=== PATIENT | female | born 1990 | race Caucasian/White ===

== ENCOUNTER 2024-05-02 15:14 | Outpatient (CLI) | payer OTHER, SELFPAY ==
[2024-05-02 15:51] LABS: Basophils Percent Auto 0.1 % (0.2-1.2); Eosinophils Absolute Auto 0.1 K/mm3 (0-0.3); Eosinophils Percent Auto 0.7 % (0-4.4); Hematocrit 33.6 % (37.0-47.0); Hemoglobin 11.1 g/dL (12.0-15.0); Immature Granulocyte Absolute 0.07 K/mm3 (0.00-0.031); Immature Granulocyte Percent A 0.8 % (0-0.5); Lymphocytes Percent Auto 15.6 % (18.3-44.2); Mean Corpuscular Hemoglobin 27.3 pg (26-34); Mean Corpuscular Volume 82.6 fl (80-100); Mean Platelet Volume 9.9 fl (7.4-10.4); Monocytes Absolute Auto 0.4 K/mm3 (0.1-0.6); Monocytes Percent Auto 4.3 % (2.6-8.5); Neutrophils Absolute Auto 6.5 K/mm3 (1.3-6.7); Neutrophils Percent Auto 78.5 % (45.5-73.1); Platelet Count Result 351 k/mm3 (150-375); Red Blood Count 4.07 M/mm3 (4.2-5.4); Red Cell Distribution Width 13.5 % (11.5-14.5); White Blood Count 8.3 K/mm3 (4.5-10.0)
[2024-05-02 16:00] LABS: Alanine Aminotransferase 18 U/L (6-35); Albumin Level 3.6 g/dL (3.5-5.1); Alkaline Phosphatase 92 U/L (38-126); Anion Gap 8 mmol/L (4-12); Aspartate Amino Transferase 27 U/L (14-36); Bilirubin,Total 0.2 mg/dL (0.2-1.3); Blood Urea Nitrogen 7 mg/dL (7-17); Carbon Dioxide 21 mmol/L (22-30); Chloride 106 mmol/L (98-107); Estimated Glomerular Filt Rate > 60; Glucose 143 mg/dL (65-110); Sodium 135 mmol/L (137-145); Uric Acid 5.1 mg/dL (2.5-7.5)
[2024-05-02 16:01] VITALS: BP 135/82; PULSE 82
[2024-05-02 16:01] LABS: Add Urine Microscopic? YES; Appearance Urine Turbid (Clear); Bacteria Urine 4+ /hpf; Bilirubin Urine 1+ (Negative); Blood Urine Negative (Negative); Color Urine Dark Yellow (Yellow); Glucose Urine UA Negative (Negative); Ketones Urine Trace mg/dL (Negative); Leukocyte Esterase Ur Trace LEU/UL (Negative); Need Manual Microscopic Reviewed; Nitrate Urine Negative (Negative); Non Pathogenic Casts >20; Protein Urine 1+ mg/dL (Negative); Specific Grav Ur 1.034 (1.001-1.035); Squamous Epithelial Cell Urine Moderate /hpf (Few); pH Urine 5.5 (5.0-9.0)
[2024-05-02 16:16] VITALS: BP 145/90; PULSE 87
[2024-05-02 16:31] VITALS: BP 146/87; PULSE 90
[2024-05-02 16:46] VITALS: BP 149/90; PULSE 88
[2024-05-02 16:47] LABS: Creatinine Urine 503.7 mg/dL; Total Protein Urine Random < 5 mg/dL; Ur Ttl Prot Creatinine Ratio < 0.01 mg/mg (0-0.20)
[2024-05-02 16:54] VITALS: BP 135/82; PULSE 88
== END 2024-05-02 17:00 | disposition home or self-care (01) ==
LOC: ANHOBOP 15:22 → ANHOBPP 15:24
PROVIDERS: PCP Nurse Practitioner Family; Visit Provider Obstetrics & Gynecology
DX: O13.9 Gestational [pregnancy-induced] hypertension without significant proteinuria, unspecified trimester (principal); Z3A.00 Weeks of gestation of pregnancy not specified
CPT/HCPCS: 36415; 59025; 80053; 81001; 82570; 84156; 84550; 85025; 87086; 99199

== ENCOUNTER 2024-05-04 15:41 | Inpatient (IN) | payer OTHER, SELFPAY ==
[2024-05-04] VITALS (15 sets, daily range): BP systolic 107–151; BP diastolic 72–98; PULSE 82–101; TEMP 36.2–36.6; BMI 44.1
--- NOTE | 2024-05-04 15:41 | LDADM ---
This patient, Radha Mcconnell, was admitted to Labor/Delivery/Recovery 108 on 05/04/24 at 15:41. Plans for labor, pain management and were discussed with patient. Patient/family oriented to hospital policies and general routines including ID bracelet, bed and alarms, visiting hours, pain management, procedures, bathroom and other care routines, personal items, smoking policy, room service/diet and guest tray routines, security routines, and visiting hours. Patient/Family are encouraged to report perceived risks to care and to ask questions if they do not understand what they are told or what they should do. See OBIX for further documentation.
[2024-05-04 16:59] LABS: Basophils Percent Auto 0.3 % (0.2-1.2); Eosinophils Absolute Auto 0.1 K/mm3 (0-0.3); Eosinophils Percent Auto 0.7 % (0-4.4); Hematocrit 32.6 % (37.0-47.0); Hemoglobin 10.6 g/dL (12.0-15.0); Immature Granulocyte Absolute 0.08 K/mm3 (0.00-0.031); Immature Granulocyte Percent A 0.8 % (0-0.5); Lymphocytes Absolute Auto 1.39 K/mm3 (0.9-3.2); Lymphocytes Percent Auto 14.5 % (18.3-44.2); Mean Corpuscular HGB Conc 32.5 g/dl (32-36); Mean Corpuscular Hemoglobin 26.8 pg (26-34); Mean Corpuscular Volume 82.5 fl (80-100); Mean Platelet Volume 10.1 fl (7.4-10.4); Monocytes Absolute Auto 0.5 K/mm3 (0.1-0.6); Monocytes Percent Auto 5.1 % (2.6-8.5); Neutrophils Absolute Auto 7.5 K/mm3 (1.3-6.7); Neutrophils Percent Auto 78.6 % (45.5-73.1); Platelet Count Result 365 k/mm3 (150-375); Red Blood Count 3.95 M/mm3 (4.2-5.4); Red Cell Distribution Width 13.3 % (11.5-14.5); White Blood Count 9.6 K/mm3 (4.5-10.0)
[2024-05-04] MEDS: DINOPROSTONE 10 MG VAG INSERT VAGINAL (17:01)
[2024-05-04 17:10] LABS: Uric Acid 4.8 mg/dL (2.5-7.5)
[2024-05-04 17:11] LABS: Alanine Aminotransferase 18 U/L (6-35); Albumin Level 3.6 g/dL (3.5-5.1); Alkaline Phosphatase 92 U/L (38-126); Anion Gap 7 mmol/L (4-12); Aspartate Amino Transferase 32 U/L (14-36); Bilirubin,Total 0.3 mg/dL (0.2-1.3); Blood Urea Nitrogen 7 mg/dL (7-17); Calcium 8.9 mg/dL (8.4-10.2); Carbon Dioxide 22 mmol/L (22-30); Chloride 107 mmol/L (98-107); Estimated CRCL calculation 156 ml/min; Estimated Glomerular Filt Rate > 60; Glucose 113 mg/dL (65-110); Potassium 3.9 mmol/L (3.4-5.0); Sodium 136 mmol/L (137-145)
[2024-05-04 17:38] LABS: Rapid Plasma Reagin Non-Reactive (NonReactive)
[2024-05-04 18:17] LABS: HIV 1/2 Ab P24 Ag Result Negative (Negative)
--- NOTE | 2024-05-04 20:22 | P.HP_ITS ---
H&P: HPI History of Present Illness Date/Time: 05/04/24 20:22 Chief Complaint: Induction of labor Narrative: 33 y/o G1 at 37 5/7 weeks here for induction of labor. She has chronic hypertension and has been taking Procardia XL 30 mg daily and labetalol 200 mg bid. She has no headache, epigastric/RUQ pain, or visual change. Labs have been OK, and we do not suspect preeclampsia. But bp control has worsened, so we have opted to go ahead with labor induction. GBS neg. Review of Systems Review of Systems: All systems reviewed & are unremarkable except as noted in HPI and below PMFSH Past Medical History Medical History Anxiety Hypertension PCOS (polycystic ovarian syndrome) Family History Family History Mother Hypertension Grandparent Hypertension Heart disease Social History Social History Social History: 04/25/24 very confident with medical forms Smoking packs per day: 1 Smoking cigarettes per day: 20.0 Years smoked: 17 Smoking pack-years: 17.00 Smoking status: Former smoker Alcohol intake: current Alcohol use details: beer Substance use: never Do You Feel Safe in your Home?: Yes Lack of Transportation: No Lack of Food: Never True Current Housing: I Have Housing Concerned About Future Housing: No Difficulty Paying Gas/Electric Bills: No Difficulty Paying for Meds: No Currently Unemployed: No Education: High School Diploma/GED Difficulty w/ Childcare or Family Care: No Living arrangements: with roommate(s) Occupation/Education: occupation 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 Spiritual care concerns: No Agree to blood products: Yes Meds Home Medications and Allergies Home Medications Medication Instructions Recorded Confirmed Type vitamins no.119-iron 1 tablet PO DAILY 07/28/21 05/01/24 History fumarate 29 mg-folic acid 1 mg tablet valacyclovir 1 gram tablet 2,000 mg PO Q12H PRN cold sores 01/24/24 05/01/24 Rx #30 tabs nifedipine 30 mg tablet,extended 30 mg PO DAILY #90 tabs 01/25/24 05/01/24 Rx release citalopram 10 mg tablet 10 mg PO DAILY #90 tabs 03/20/24 05/01/24 Rx labetalol 200 mg tablet 200 mg PO Q12H #180 tabs 05/01/24 05/04/24 Rx Allergies Allergy/AdvReac Type Severity Reaction Status Date / Time No Known Allergies Allergy Verified 05/01/24 10:00 Vital Signs Vital Signs - 24 hr 05/04/24 16:16 05/04/24 17:24 05/04/24 17:31 Temperature Pulse Rate 91 84 82 Blood Pressure 133/81 148/98 H 147/93 H Oxygen Delivery 05/04/24 18:00 05/04/24 17:23 05/04/24 18:31 Temperature 36.2 C L Pulse Rate 89 88 Blood Pressure 129/72 107/79 Oxygen Delivery 05/04/24 19:01 05/04/24 19:31 05/04/24 20:01 Temperature Pulse Rate 82 101 H 91 Blood Pressure 121/87 131/92 H 137/87 Oxygen Delivery 05/04/24 17:15 Temperature Pulse Rate Blood Pressure Oxygen Delivery Room Air Exam Const: Orientation/consciousness: patient oriented x3 Other: Well-developed, well-nourished female in no acute distress. Neck: Thyroid: thyroid normal Lymphatic: no lymphadenopathy noted (in neck, axilla or inguinal nodes) Resp: Effort & Inspection: normal respiratory effort Auscultation: clear to auscultation bilaterally Cardio: Rate: regular rate Rhythm: regular rhythm Heart sounds: S1 normal heart sound present and S2 normal heart sound present GI: Other: ABD: Soft, nontender, nondistended, gravid. NST reactive. TOCO: rare contractions. No guarding or rebound tenderness. No hepatosplenomegaly. : General: Yes no CVA tenderness Other: Cervix 1/th per RN Back/Spine/Pelvis: Back: no CVA tenderness Skin: General skin exam: normal color and no rashes or lesions noted Neuro: General: patient oriented x3 Extrem: Other: Extremities: nontender with no edema Psych: Mental Status: mental status grossly normal Affect: normal affect H&P: Results Labs Labs: Short CBC 05/04/24 Range/Units 16:23 WBC 9.6 (4.5-10.0) K/mm3 Hgb 10.6 L (12.0-15.0) g/dL Hct 32.6 L (37.0-47.0) % Plt Count 365 (150-375) k/mm3 BMP 05/04/24 16:23 Sodium 136 L Potassium 3.9 Chloride 107 Carbon Dioxide 22 BUN 7 Creatinine 0.60 L Glucose 113 H Calcium 8.9 Liver Function 05/04/24 Range/Units 16:23 Total Bilirubin 0.3 (0.2-1.3) mg/dL AST 32 (14-36) U/L ALT 18 (6-35) U/L Alkaline Phosphatase 92 (38-126) U/L Albumin 3.6 (3.5-5.1) g/dL Assessment and Plan Assessment and plan (1) Term : Code(s): Z34.90 - Encounter for supervision of normal , unspecified, unspecified trimester Status: Acute Assessment and Plan: A: IUP at 37 5/7 weeks with CHTN, worsening bp control on 2 antihypertensives. P: Offered induction of labor. We reviewed risks, benefits and alternatives in detail, and she elects to proceed. Cervidil has been placed. Plan oxytocin in the morning. Anticipate . (2) Chronic hypertension affecting : Code(s): O10.919 - Unspecified pre-existing hypertension complicating , unspecified trimester Status: Acute (3) Anxiety: Code(s): F41.9 - Anxiety disorder, unspecified Status: Acute (4) Obesity affecting : Code(s): O99.210 - Obesity complicating , unspecified trimester Status: Acute
[2024-05-05] VITALS (263 sets, daily range): BP systolic 103–165; BP diastolic 55–120; PULSE 71–173; TEMP 36.5–37.3; O2SAT 81–100
[2024-05-05] MEDS: LACTATED RINGERS 1,000 ML 125 ML IV CONT ×4 (06:10→21:30)
[2024-05-05] MEDS: OXYTOCIN 30 UNITS/NS 500 ML 30 UNITS/500 ML BAG 6 UNITS IV CONT (06:10)
--- NOTE | 2024-05-05 06:19 | P.PNAN_ITS ---
Anes - Eval Pre Procedure Procedure: Labor epidural Date/Time: 05/05/24 06:19 Surgeon: mandy Preop Diagnosis: pain during labor Pre Op Diagnosis: Induction of Labor Patient Data Age: 33 Gender: F Height: 1.7 m Weight: 128 kg Last Vital Signs Temp 36.5 C 05/05/24 04:00 Pulse 82 05/05/24 06:01 BP 156/90 H 05/05/24 06:01 O2 Del Method Room Air 05/04/24 17:15 Allergies Allergy/AdvReac Type Severity Reaction Status Date / Time No Known Allergies Allergy Verified 05/01/24 10:00 Home Medications Medication Instructions Recorded Confirmed Type vitamins no.119-iron 1 tablet PO DAILY 07/28/21 05/01/24 History fumarate 29 mg-folic acid 1 mg tablet valacyclovir 1 gram tablet 2,000 mg PO Q12H PRN cold sores 01/24/24 05/01/24 Rx #30 tabs nifedipine 30 mg tablet,extended 30 mg PO DAILY #90 tabs 01/25/24 05/01/24 Rx release citalopram 10 mg tablet 10 mg PO DAILY #90 tabs 03/20/24 05/01/24 Rx labetalol 200 mg tablet 200 mg PO Q12H #180 tabs 05/01/24 05/04/24 Rx Laboratory Tests 05/04/24 16:23 WBC 9.6 K/mm3 (4.5-10.0) RBC 3.95 L M/mm3 (4.2-5.4) Hgb 10.6 L g/dL (12.0-15.0) Hct 32.6 L % (37.0-47.0) MCV 82.5 fl (80-100) MCH 26.8 pg (26-34) MCHC 32.5 g/dl (32-36) RDW 13.3 % (11.5-14.5) Plt Count 365 k/mm3 (150-375) MPV 10.1 fl (7.4-10.4) Immature Gran % (Auto) 0.8 H % (0-0.5) Neut % (Auto) 78.6 H % (45.5-73.1) Lymph % (Auto) 14.5 L % (18.3-44.2) [place] % (Auto) 5.1 % (2.6-8.5) Eos % (Auto) 0.7 % (0-4.4) Baso % (Auto) 0.3 % (0.2-1.2) Lymph # (Auto) 1.39 K/mm3 (0.9-3.2) [place] # (Auto) 0.5 K/mm3 (0.1-0.6) Eos # (Auto) 0.1 K/mm3 (0-0.3) Baso # (Auto) 0.0 K/mm3 (0.0-0.1) Abs Immat Gran (auto) 0.08 H K/mm3 (0.00-0.031) Absolute Neuts (auto) 7.5 H K/mm3 (1.3-6.7) Absolute Nucleated RBC 0.000 K/mm3 (0.0-0.012) Nucleated RBC % 0.0 % (0.0-0.2) Sodium 136 L mmol/L (137-145) Potassium 3.9 mmol/L (3.4-5.0) Chloride 107 mmol/L (98-107) Carbon Dioxide 22 mmol/L (22-30) Anion Gap 7 mmol/L (4-12) BUN 7 mg/dL (7-17) Creatinine 0.60 L mg/dL (0.7-1.0) Estim Creat Clear Calc 156 ml/min Estimated GFR > 60 (59 - ) Glucose 113 H mg/dL (65-110) Uric Acid 4.8 mg/dL (2.5-7.5) Calcium 8.9 mg/dL (8.4-10.2) Total Bilirubin 0.3 mg/dL (0.2-1.3) AST 32 U/L (14-36) ALT 18 U/L (6-35) Alkaline Phosphatase 92 U/L (38-126) Total Protein 7.0 g/dL (6.3-8.2) Albumin 3.6 g/dL (3.5-5.1) RPR Non-reactive (NonReactive) HIV 1&2 Ab/P24 Ag 4thGn Negative (Negative) Blood Type AB Positive Antibody Screen Negative Patient hx anesthesia problems: none Family hx anesthesia problems: none Results Review: All pre-operative results and documents have been reviewed as part of the pre- operative evaluation. PMFSH Past Medical History Medical History (Updated 05/05/24 @ 06:20 by Patsy Long CRNA) Anxiety Hypertension Morbid obesity PCOS (polycystic ovarian syndrome) Family History Family History Mother Hypertension Grandparent Hypertension Heart disease Social History Social History Social History: 04/25/24 very confident with medical forms Smoking packs per day: 1 Smoking cigarettes per day: 20.0 Years smoked: 17 Smoking pack-years: 17.00 Smoking status: Former smoker Alcohol intake: current Alcohol use details: beer Substance use: never Do You Feel Safe in your Home?: Yes Lack of Transportation: No Lack of Food: Never True Current Housing: I Have Housing Concerned About Future Housing: No Difficulty Paying Gas/Electric Bills: No Difficulty Paying for Meds: No Currently Unemployed: No Education: High School Diploma/GED Difficulty w/ Childcare or Family Care: No Living arrangements: with roommate(s) Occupation/Education: occupation 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
--- NOTE | 2024-05-05 08:55 | PM.OBPNLAB ---
Pain Control Date/time seen: 05/05/24 08:55 Feeling some contractions. AVSS NST reactive TOCO: irregular contractions Cervix 250/-2. AROM with clear fluid. IUPC placed. Continue labor.
[2024-05-05] MEDS: NIFEdipine 30 MG TAB.ER.24 PO (09:02)
[2024-05-05] MEDS: LABETALOL HCL 100 MG TABLET 200 MG PO ×2 (09:02→21:53)
--- NOTE | 2024-05-05 11:51 | PM.OBPNLAB ---
Pain Control Date/time seen: 05/05/24 11:51 Comfortable with epidural. AVSS NST reactive TOCO: contractions every 2-3 min Cervix /-2 Continue labor.
--- NOTE | 2024-05-05 16:39 | PM.OBPNLAB ---
Pain Control Date/time seen: 05/05/24 16:39 Comfortable with epidural. AVSS NST reactive TOCO: contractions every 2-3 min Cervix 3-/-2. Continue labor. I have signed out to Dr. Sanchez, who is on duty for the weekend. The patient is aware as well.
[2024-05-05 17:11] LABS: Amphetamine Screen Urine Negative (Negative); Barbiturate Screen Urine Negative (Negative); Benzodiazepines Screen Urine Negative (Negative); Cannabinoid Screen Urine Negative (Negative); Cocaine Screen Urine Negative (Negative); Methadone Screen Urine Negative (Negative); Opiate Screen Urine Negative (Negative); Phencyclidine Screen Urine Negative (Negative)
--- NOTE | 2024-05-05 21:44 | PC.NURSE ---
[id number] spoke to Laura PETERS regarding FHT tracing. RN notified MD of FHT with moderate variability and accelerations. RN also notified MD of uterine activity. RN notified MD of tachysystole, so pitocin was turned off and a fluid bolus was started. RN notified MD that when RN palpated abdomen, it doesn't get very soft in between contractions and that RN had Shasta Lewis RN confirm by palpating. Contractions palpating moderate. RN also notified MD of IUPC falling out and a new one was placed and Leslie Mckee RN got blood flashback in catheter when placing IUPC. RN also notified MD of current uterine resting tone. MD gave orders to give terb if needed. MD gave order to start pitocin again when allowed per tracing.
[2024-05-06] VITALS (352 sets, daily range): BP systolic 89–167; BP diastolic 53–123; PULSE 76–154; RESP 14–22; TEMP 36.4–37.3; O2SAT 88–100
[2024-05-06] MEDS: AMPICILLIN 2 GM/NS 100 ML 2 GM/100 ML BAG IVPB (02:50)
[2024-05-06] MEDS: OXYTOCIN 30 UNITS/NS 500 ML 30 UNITS/500 ML BAG 6 UNITS IV CONT (04:18)
[2024-05-06] MEDS: AMPICILLIN 1 GM/NS 50 ML 1 GM/50 ML BAG IVPB ×4 (07:26→18:35)
[2024-05-06] MEDS: NIFEdipine 30 MG TAB.ER.24 PO (09:46)
[2024-05-06] MEDS: LACTATED RINGERS 1,000 ML 125 ML IV CONT ×2 (10:23→19:14)
--- NOTE | 2024-05-06 10:58 | PM.OBPNLAB ---
Pain Control Date/time seen: 05/06/24 10:58 Pain control: epidural Pelvic Exam Dilation (cm): 4 Effacement (%): 80 Amniotic membrane status: Ruptured Contractions Contraction pattern: Regular Contraction intensity: Moderate Status status: Category l Comments: Occassional decels that resolve with position change or decreasing pitocin. Assessment and Plan Assessment: induction ongoing (Prolonged latent phase. Discussed with patient. ) Plan: continuous present management
[2024-05-06] MEDS: LABETALOL HCL 100 MG TABLET 200 MG PO (12:44)
[2024-05-06] MEDS: valACYclovir HCL 500 MG TABLET PO (14:18)
[2024-05-06] MEDS: CALCIUM CARBONATE (TUMS) 500 MG (200 MG ELEMENTAL) PO (16:40)
[2024-05-06] MEDS: OXYTOCIN 30 UNITS/NS 500 ML 30 UNITS/500 ML BAG IV CONT (16:44)
--- NOTE | 2024-05-06 18:24 | PM.OBPNLAB ---
Pain Control Date/time seen: 05/06/24 18:24 Pain control: epidural Comments: RN reports contractions not adequate and as increasing Pitocin, miki is less. Offered patient csection for failed induction vs pitocin break and restarting with new bag of pitocin. Patient prefers to take a break. Pelvic Exam Dilation (cm): 4 (4.5) Effacement (%): 80 Amniotic membrane status: Ruptured Contractions Contraction pattern: Regular Contraction intensity: Moderate Status status: Category l
[2024-05-06] MEDS: ACETAMINOPHEN 500 MG TABLET 1000 MG PO (21:04)
[2024-05-06] MEDS: FAMOTIDINE 20 MG/2 ML VIAL IV PUSH (21:05)
[2024-05-06] MEDS: ceFAZolin 3 GM/D5W 100 ML 100 ML IVPB (21:06)
[2024-05-06] MEDS: AZITHROMYCIN 500 MG/NS 250 ML 500 MG/250 ML BAG 250 MG IVPB (21:06)
[2024-05-06] MEDS: ONDANSETRON INJ 4 MG/2 ML VIAL IV PUSH (21:06)
--- NOTE | 2024-05-06 21:14 | PM.OBPNLAB ---
Pain Control Date/time seen: 05/06/24 21:14 Pain control: epidural Comments: No change. Decided to proceed with csection. Questions answered. Had to wait for anesthesia case in OR to move forward. FHTs remain category I Pelvic Exam Dilation (cm): 4 (4.5) Effacement (%): 80 Amniotic membrane status: Ruptured Contractions Contraction pattern: Regular Contraction intensity: Moderate Status status: Category l
--- NOTE | 2024-05-06 21:16 | WPDHPUPDATE1 ---
History and Physical Update Update Date/Time: 05/06/24 21:16 History and Physical has been reviewed, including an updated exam of the patient. There are NO changes in the patient's condition. Risks, benefits, and alternatives have been discussed and questions answered. Patient agrees to proceed with procedure.
--- NOTE | 2024-05-06 22:02 | W.PM.OBCSD ---
OB - Delivery Note Procedure Delivery date: 05/06/24 Pre-op diagnosis: Arrest of Dilation and Chronic Hypertension Post-op Diagnosis: Same Induction method: AROM, Per Pitocin Protocol and Per Cervidil Protocol Delivery monitor: Internal FHT and Internal Uterine Prior to decision for section, ACOG/SMFM labor guidelines were considered and discussed with the patient and staff. Decision made to proceed with the section.: Yes Procedure Performed: Primary Primary branch: low cervical, transverse Surgeon: Lesa Sanchez MD Anesthesia type: Epidural Description of Procedure/Findings: Patient was taken to the operating room and placed under anesthesia in the dorsal supine position with a leftward tilt. Once anesthesia was deemed adequate she was prepped and draped in the usual sterile fashion. The Pfannenstiel skin incision was made with a scalpel and carried down to the underlying layer of fascia with the scalpel. The incision was extended laterally using De La Paz scissors. [facility] were used to tent the fascia which was then dissected off using sharp and blunt dissection. The rectus muscles were in the midline and the peritoneum entered with a Peon high in the incision. The incision was extended with blunt traction. The Deshawn O retractor was placed. The infant was noted to be deep in the pelvis. The bladder flap was distal to the incision line therefore was not taken down. A transverse incision was made with a scalpel and extended with blunt traction. The infant's head was brought up into the incision and noted to be in the left occiput posterior position. The 's head was rotated and guided through the incision while the laboratory chemical assistant applied fundal pressure. Nuchal cord x1 was reduced. Delayed cord clamping for 1minute was performed while stimulating the infant. The cord was clamped and cut the infant handed to the waiting nursery nurse. The placenta was removed using manual traction. Uterus was cleared of all clots and debris. The incision is grasped with Allis clamps. The uterine incision was closed using 0 Monocryl in a running locked fashion. Same suture was used to imbricate. Good hemostasis is noted. The gutters are irrigated. The incision was again inspected and noted to be hemostatic. The Deshawn O retractor was removed. The fascia was closed using 0 Vicryl in a running fashion. The subcutaneous tissues were irrigated made hemostatic using Bovie cautery. Skin is closed using 4-0 Vicryl in a subcuticular fashion. The Dermabond is placed over the incision and the Mepilex dressing is placed. Sponge, needle, and instrument counts are correct per the OR staff. Patient received antibiotics prior to incision. Patient was taken to recovery in stable condition. Specimen: Yes ( Placenta) Estimated Blood Loss: 555 Urine Output: 900 Drains: Yes ( El catheter) Packing: No Complications: No immediate complications Condition: Stable Disposition: Floor Baby Date of : 05/06/24 Gestational Age by Date: 37 gender: Male Weight (pounds): 6 Weight (ounces): 15 presentation: vertex position: Left Occiput Posterior Placenta delivery description: Spontaneous Cord Vessel Description: 3 Vessels, Nuchal Cord and Delayed Cord Clamping score one minute: 6 score five minutes: 9
--- NOTE | 2024-05-06 22:07 | PM.OBDSVD ---
DS: Admitting Diagnosis Discharge Date 05/10/24 Admitting Diagnosis chronic hypertension with worsening blood pressures 37 weeks failure to progress DS: Discharge Diagnosis Discharge Diagnosis (1) Delivery of first by section using transverse incision of lower segment of uterus: Code(s): O82 - Encounter for delivery without indication Status: Acute (2) Chronic hypertension affecting : Code(s): O10.919 - Unspecified pre-existing hypertension complicating , unspecified trimester Status: Acute OB - DS: Summary OB Procedures : NST, PIH Mgmt and Ultrasound OB Procedures Intrapartum: low cervical, transverse OB Procedures: : None Peripartum Data Infant Delivery Method: Section Procedures: Procedures Operation Date: 05/06/24 20:30 <No data on this case meets the specified criteria> complications: none Status at Discharge Functional status at discharge: independent ambulation Overall status at discharge: patient is progressing back to baseline Time Spent with Patient Time attestation: Total time spent providing and/or coordinating discharge services: Discharge Plan Discharge Attending physician on discharge: Aniceto Boswell Discharging Clinician: Aniceto Boswell Anticipated Discharge Date/Time: 05/09/24 10:09 Patient Disposition: Home, Self-Care Activity: may shower, may drive after 2 weeks and pelvic rest Diet: regular Wound Care Instructions: keep dressing dry Discharge Instructions: Call or return if temperature above 100.4? F, increased abdominal pain, increased vaginal bleeding or any new problems. Stand Alone Forms: General Discharge Information Follow-up/Referrals: Aniceto Boswell MD [Physician] - 4 Weeks Discharge Medications: New ferrous sulfate 325 mg (65 mg iron) tablet 325 mg PO DAILY Qty: 30 0RF ibuprofen 600 mg tablet 600 mg PO Q6H PRN (Reason: cramps) Qty: 30 0RF hydrocodone-acetaminophen 5-325 mg tablet 1 - 2 tablet PO Q6H PRN (Reason: pain) Qty: 30 0RF Continued PNV 119-iron fum-folic acid 29 mg iron- 1 mg tablet 1 tablet PO DAILY labetalol 200 mg tablet 200 mg PO Q12H Qty: 180 0RF valacyclovir 1 gram tablet 2,000 mg PO Q12H PRN (Reason: cold sores) Qty: 30 0RF nifedipine 30 mg tablet extended release 30 mg PO DAILY Qty: 90 1RF citalopram 10 mg tablet 10 mg PO DAILY Qty: 90 0RF Date of admission: 05/04/24 15:41 Primary Care Provider: Sonya Mandujano Admitting Provider: Aniceto Boswell Attending physician on admission: Aniceto Boswell Condition: Stable
[2024-05-07] VITALS (10 sets, daily range): BP systolic 119–147; BP diastolic 67–90; PULSE 76–105; RESP 16–20; TEMP 36.4–36.9; O2SAT 97–100
--- NOTE | 2024-05-07 00:50 | OBPPTRN ---
Patient transferred to post room #282 via stretcher. Support person present. Oriented to unit, room, information board, rooming in, admission packet and security measures. Patient verbalizes understanding.
[2024-05-07] MEDS: LIDOCAINE 5% PATCH 1 PATCH TRANSDERM (03:30)
[2024-05-07] MEDS: ACETAMINOPHEN 325 MG TABLET 650 MG PO ×4 (03:30→22:00)
[2024-05-07] MEDS: DEXTROSE 5%/0.45% SOD CHL 1,000 ML 125 ML IV CONT (03:30)
[2024-05-07] MEDS: KETOROLAC 15 MG/ML VIAL (*BKC) IV PUSH ×4 (03:30→22:00)
[2024-05-07 05:25] LABS: Basophils Absolute Auto 0.1 K/mm3 (0.0-0.1); Basophils Percent Auto 0.3 % (0.2-1.2); Eosinophils Absolute Auto 0.1 K/mm3 (0-0.3); Eosinophils Percent Auto 0.3 % (0-4.4); Hemoglobin 9.9 g/dL (12.0-15.0); Immature Granulocyte Absolute 0.13 K/mm3 (0.00-0.031); Immature Granulocyte Percent A 0.9 % (0-0.5); Lymphocytes Absolute Auto 1.41 K/mm3 (0.9-3.2); Lymphocytes Percent Auto 9.3 % (18.3-44.2); Mean Corpuscular Hemoglobin 27.8 pg (26-34); Mean Corpuscular Volume 84.3 fl (80-100); Mean Platelet Volume 10.2 fl (7.4-10.4); Monocytes Absolute Auto 0.7 K/mm3 (0.1-0.6); Monocytes Percent Auto 4.7 % (2.6-8.5); Neutrophils Absolute Auto 12.8 K/mm3 (1.3-6.7); Neutrophils Percent Auto 84.5 % (45.5-73.1); Platelet Count Result 316 k/mm3 (150-375); Red Blood Count 3.56 M/mm3 (4.2-5.4); Red Cell Distribution Width 13.6 % (11.5-14.5); White Blood Count 15.2 K/mm3 (4.5-10.0)
[2024-05-07] MEDS: diphenhydrAMINE HCl CAP 25 MG CAPSULE PO (05:25)
[2024-05-07] MEDS: SIMETHICONE 80 MG TAB.CHEW PO ×2 (09:23→16:09)
[2024-05-07] MEDS: valACYclovir HCL 500 MG TABLET PO (09:23)
[2024-05-07] MEDS: LABETALOL HCL 100 MG TABLET 200 MG PO ×2 (09:23→22:00)
[2024-05-07] MEDS: DOCUSATE SODIUM 100 MG CAPSULE PO ×2 (09:23→16:09)
[2024-05-07] MEDS: MULTIVIT/MIN/PREN/FOL AC/IRON TABLET 1 TAB PO (09:23)
[2024-05-07] MEDS: CITALOPRAM HYDROBROMIDE 10 MG TABLET PO (09:26)
[2024-05-07] MEDS: POLYSACCHARIDE IRON COMPLEX 150 MG CAPSULE PO ×2 (09:26→16:09)
[2024-05-07] MEDS: NIFEdipine 30 MG TAB.ER.24 PO (09:26)
--- NOTE | 2024-05-07 09:50 | PM.OBPNVD ---
OB - PN: Subj Subjective Date/time seen: 05/07/24 09:50 Patient comments: no complaints and pain well controlled baby status: doing well OB - PN: Obj Data Labs 05/07/24 04:58 05/04/24 16:23 Labs: Laboratory Results - last 24 hr 05/07/24 04:58 WBC 15.2 H RBC 3.56 L Hgb 9.9 L Hct 30.0 L MCV 84.3 MCH 27.8 MCHC 33.0 RDW 13.6 Plt Count 316 MPV 10.2 Immature Gran % (Auto) 0.9 H Neut % (Auto) 84.5 H Lymph % (Auto) 9.3 L [place] % (Auto) 4.7 Eos % (Auto) 0.3 Baso % (Auto) 0.3 Lymph # (Auto) 1.41 [place] # (Auto) 0.7 H Eos # (Auto) 0.1 Baso # (Auto) 0.1 Abs Immat Gran (auto) 0.13 H Absolute Neuts (auto) 12.8 H Absolute Nucleated RBC 0.000 Nucleated RBC % 0.0 OB - PN A/P Plan day: 1 Plan: routine care Time Spent With Patient Time: Total time spent is greater than 50% in coordination of care (as documented) at patient's floor/unit and/or counseling patient: Exam Narrative: bandage c/d/i : Bimanual exam- vagina & uterus: other (Uterus firm, nt @U)
--- NOTE | 2024-05-07 14:03 | WPDANLDPN2 ---
Anes-Prog Note L&D Date/Time: 05/07/24 14:03 Comfortable throughout: labor and section Neuraxial method: epidural Epidural/Spinal procedure site: clean & non-tender Neuro status: Neuro function grossly intact. Cardiovascular status: normal Respiratory status: normal Airway patency: baseline Mental status: baseline Post-Op hydration status: normal Vital Signs: Last Vital Signs Temp 98 F 05/07/24 12:09 Pulse 98 05/07/24 12:09 Resp 20 05/07/24 12:09 BP 124/75 05/07/24 12:09 Pulse Ox 98 05/07/24 12:09 O2 Del Method Room Air 05/07/24 12:09 Pain score (VAS): 1 I/O: Intake & Output 05/06/24 05/07/24 05/07/24 23:59 07:59 15:59 Intake Total 1074.6 500 500 Output Total 1655 650 Balance -580.4 -150 500 Post-procedural complaints: pruritis moderate, treatment effective Patient feedback: Patient satisfied with anesthetic care.
--- NOTE | 2024-05-07 14:03 | WPDANLDNPN2 ---
Anes-Prog Note L&D-Neuraxial Date/Time: 05/07/24 14:03 Neuraxial medications: epidural PF morphine Opiod-related complaints: pruritis moderate, treatment effective Patient feedback: Patient satisfied with post-operative pain management.
[2024-05-08] MEDS: ACETAMINOPHEN 325 MG TABLET 650 MG PO ×3 (04:30→17:06)
[2024-05-08] MEDS: IBUPROFEN 600 MG TABLET PO ×3 (04:30→17:06)
[2024-05-08 08:00] VITALS: PULSE 77
[2024-05-08] MEDS: LABETALOL HCL 100 MG TABLET 200 MG PO ×2 (08:00→21:07)
[2024-05-08] MEDS: NIFEdipine 30 MG TAB.ER.24 PO (08:00)
[2024-05-08] MEDS: DOCUSATE SODIUM 100 MG CAPSULE PO ×2 (08:00→17:06)
[2024-05-08] MEDS: POLYSACCHARIDE IRON COMPLEX 150 MG CAPSULE PO ×2 (08:00→17:06)
[2024-05-08] MEDS: SIMETHICONE 80 MG TAB.CHEW PO ×4 (08:01→21:07)
[2024-05-08] MEDS: CITALOPRAM HYDROBROMIDE 10 MG TABLET PO (08:01)
[2024-05-08] MEDS: valACYclovir HCL 500 MG TABLET PO (08:01)
[2024-05-08] MEDS: MULTIVIT/MIN/PREN/FOL AC/IRON TABLET 1 TAB PO (08:01)
[2024-05-08 08:06] VITALS: BP 146/89; PULSE 77; RESP 16; TEMP 37.1; O2SAT 97
--- NOTE | 2024-05-08 12:11 | PM.OBPNVD ---
OB - PN: Subj Subjective Date/time seen: 05/08/24 12:11 Narrative: Pain OK. Tolerating diet. OB - PN: Obj Data Labs 05/07/24 04:58 05/04/24 16:23 OB - PN A/P Plan day: 2 Comments: A: POD#2, doing well. P: Routine care. Exam Narrative: AVSS I/O OK ABD soft, nontender, fundus firm. Incision c/d/i. EXT nontender
[2024-05-08] MEDS: HYDROcodone/acetaminophen (*CRX) 5-325 MG TABLET 1 TAB PO (15:05)
--- NOTE | 2024-05-08 17:00 | PC.NURSE ---
To patient room to discuss needs. Baby is in level 2 on IV fluids. Mom has been going down at feeding times and putting him to breast as well as supplementing with formula. Patient was given a hand pump to use last night but since baby has been she has not been pumping regularly. Encouraged her to pump any time baby doesn't breastfeed or if he doesn't breastfeed effectively. Mom has her own wearable Lansinoh pump that we reviewed using her prosthodontist/owner's manual. Instructions given on cleaning, care, usage, that there should be no pain, pumping schedule for milk production, collection, and storage of human milk. Patient was assessed for correct placement, flange size, to pump for comfort and nipple stretching/stimulation for adequate milk production every 3 hours (8 times in 24 hours) 1-2 times at night. Discussed with mom her history of PCOS and the risks that poses to milk supply. She has pumped drops and reinforced that this is normal for all moms in the first days after delivery. The only way to know what her milk supply with be like is to pump regularly or put baby to breast often. Discussed need for continued supplementation per Dr. salguero due to condition.?Mother voiced understanding of the education shared along with mom/baby guide and the Admission folder. Reported to the Primary RN.
[2024-05-08 20:00] VITALS: BP 130/70; PULSE 89; RESP 16; TEMP 36.8; O2SAT 100
[2024-05-08 21:07] VITALS: PULSE 89
[2024-05-08] MEDS: LIDOCAINE 5% PATCH 1 PATCH TRANSDERM (21:07)
[2024-05-09] MEDS: ACETAMINOPHEN 325 MG TABLET 650 MG PO ×4 (03:10→22:15)
[2024-05-09] MEDS: IBUPROFEN 600 MG TABLET PO ×4 (03:10→22:15)
[2024-05-09 08:42] VITALS: PULSE 88
[2024-05-09] MEDS: NIFEdipine 30 MG TAB.ER.24 PO (08:42)
[2024-05-09] MEDS: LABETALOL HCL 100 MG TABLET 200 MG PO ×2 (08:42→21:41)
[2024-05-09] MEDS: valACYclovir HCL 500 MG TABLET PO (08:42)
[2024-05-09] MEDS: DOCUSATE SODIUM 100 MG CAPSULE PO ×2 (08:46→16:57)
[2024-05-09] MEDS: MULTIVIT/MIN/PREN/FOL AC/IRON TABLET 1 TAB PO (08:46)
[2024-05-09] MEDS: POLYSACCHARIDE IRON COMPLEX 150 MG CAPSULE PO ×2 (08:46→16:57)
[2024-05-09] MEDS: CITALOPRAM HYDROBROMIDE 10 MG TABLET PO (08:46)
[2024-05-09 09:00] VITALS: BP 148/98; PULSE 88; RESP 16; TEMP 36.6; O2SAT 96
--- NOTE | 2024-05-09 10:10 | PC.NURSE ---
1010- Introductions were made, then consulted with patient to assess needs related to . Discussed with mother her?plans to feed?her infant and the?experience so far. She states that the night RN told her not to put baby to breast and just to bottle feed. Mom does want to try to breastfeed at each feeding time. She was using the nipple shield yesterday. Resources provided for inpatient and outpatient services with the feeding sheet, mom/baby guide and name/number written on the communication board. Mother voiced understanding of information and will call if there is a request for assistance. Reported to the Primary RN. 1115- Observed mother latching infant to the [right] breast in [cradle] position. Infant [was] able to maintain an appropriate latch off and on. Mother [declines] nipple pain/discomfort [throughout feeding]. Encouraged mother to keep infant awake and nursing at the breast for 15 minutes. Mother taught to listen for swallowing during feedings. Reviewed using the blue feeding sheet to record time and duration of feeding (recommended 15-20 minutes to limit the time baby spends out of the bili lights). Mother will proceed with formula supplementation after . Mother voiced understanding of the education shared, to call for assistance if the infant does not latch or if there is discomfort with . name/number on communication board. Reported to the Primary RN.
--- NOTE | 2024-05-09 12:13 | PM.OBPNVD ---
OB - PN: Subj Subjective Date/time seen: 05/09/24 12:13 Narrative: Pain OK. Tolerating diet. Would like circumcision. She was hoping to go home today, but baby just started on bili lights. OB - PN: Obj Data Labs 05/07/24 04:58 05/04/24 16:23 OB - PN A/P Plan day: 3 Comments: A: POD#3, doing well. P: Reviewed circ. Routine care. Try for home tomorrow. Exam Narrative: AVSS I/O OK ABD soft, nontender, fundus firm. Bandage dry. EXT nontender
--- NOTE | 2024-05-09 12:16 | PM.OBDSVD ---
DS: Admitting Diagnosis Discharge Date 05/10/24 Admitting Diagnosis IUP at 37 5/7 weeks Chronic HTN with worsening bp control DS: Discharge Diagnosis Discharge Diagnosis (1) delivery delivered: Code(s): O82 - Encounter for delivery without indication Status: Acute (2) Chronic hypertension affecting : Code(s): O10.919 - Unspecified pre-existing hypertension complicating , unspecified trimester Status: Acute OB - DS: Summary OB Procedures : NST OB Procedures Intrapartum: OB Procedures: : None Peripartum Data Procedures: Procedures Operation Date: 05/06/24 20:30 Actual Procedure Side Surgeon p Section Not Applicable Lesa Sanchez MD Time Spent with Patient Time attestation: Total time spent providing and/or coordinating discharge services: DS: Data Data Completed and Pending Pending studies at discharge: Pending at discharge 05/06/24 22:15 Surgical [PTH] Routine Discharge Plan Discharge Attending physician on discharge: Aniceto Boswell Consulting providers: Lesa Sanchez; Barrera Sinha; Patsy Long; Marcia Duran Discharging Clinician: Aniceto Boswell Anticipated Discharge Date/Time: 05/09/24 10:09 Patient Disposition: Home, Self-Care Activity: may shower, may drive after 2 weeks and pelvic rest Diet: regular Wound Care Instructions: keep dressing dry Discharge Instructions: Education: Mom and Baby Guide Given to: Mother Follow-Up: Call your delivering provider's office for an appointment to be seen in: call and make an appointment Mom and baby should come to the [facility] for the follow-up appointment. Appointment Date/Time: May 12, 2024 at 9:00 am What to expect at your follow-up visit: Blood Pressure Check Physical Assessment Call [phone] if you are unable to keep your appointment time. BREAST CARE: * Wear a snug supportive bra. * For engorgement discomfort: Breast Feeding: * Apply warm moist washcloths * Express milk as needed to relieve engorgement * Wear loose clothing Bottle Feeding: * May apply ice packs * For sore nipples: * Identify correct latch-on * Apply warm moist washcloths before and after nursing * Air dry nipples after nursing * May apply Lansinoh cream to nipples ABDOMINAL INCISION: (if applicable) * Allow incision to air dry * Do NOT use lotions for powders on your incision * When showering, allow soap and water to run over the incision, but do not wash incision EPISIOTOMY/PERINEAL CARE: * Until bleeding stops, use your valentin bottle after urinating * Change your pad frequently throughout the day * You may take sitz baths several times a day (fill your bathtub with warm water and soak for 20 minutes.) Do NOT bathe in the water * No tub baths until seen by your physician - You may shower ACTIVITY: * Rest as much as possible. * Do not exercise or lift anything heavier than your baby (such as laundry or other children.) * Avoid stairs or driving as much as possible. * Do not put anything into the vagina. No douching, tampons, or sexual activity until seen by physician. NOTIFY PHYSICIAN IF YOU HAVE ANY QUESTIONS OR IF ANY OF THE FOLLOWING SYMPTOMS OCCUR: * If your episiotomy or incision becomes red, swollen, or more painful than what you have experienced in the hospital. * If your vaginal bleeding becomes foul smelling. * If your vaginal bleeding becomes more heavy than a period or if your bleeding changes from pink to bright red. However, you may pass an occasional walnut-sized clot once or twice for the first week . * If you experience a sharp, shooting pain in you calves. * If you discover a hard, reddened area on your breast or if you experience flu-like symptoms. DIET: * Eat regular, well-balanced meals. * Drink plenty of fluids daily. If , drink to thirst. Call or return if temperature above 100.4? F, increased abdominal pain, increased vaginal bleeding or any new problems. Stand Alone Forms: General Discharge Information Follow-up/Referrals: Aniceto Boswell MD [Physician] - 4 Weeks Discharge Medications: New ferrous sulfate 325 mg (65 mg iron) tablet 325 mg PO DAILY Qty: 30 0RF ibuprofen 600 mg tablet 600 mg PO Q6H PRN (Reason: cramps) Qty: 30 0RF hydrocodone-acetaminophen 5-325 mg tablet 1 - 2 tablet PO Q6H PRN (Reason: pain) Qty: 30 0RF Continued PNV 119-iron fum-folic acid 29 mg iron- 1 mg tablet 1 tablet PO DAILY labetalol 200 mg tablet 200 mg PO Q12H Qty: 180 0RF valacyclovir 1 gram tablet 2,000 mg PO Q12H PRN (Reason: cold sores) Qty: 30 0RF nifedipine 30 mg tablet extended release 30 mg PO DAILY Qty: 90 1RF citalopram 10 mg tablet 10 mg PO DAILY Qty: 90 0RF Date of admission: 05/04/24 15:41 Primary Care Provider: Sonya Mandujano Admitting Provider: Aniceto Boswell Attending physician on admission: Aniceto Boswell Condition: Stable
[2024-05-09] MEDS: SIMETHICONE 80 MG TAB.CHEW PO (16:57)
[2024-05-09 21:41] VITALS: PULSE 85
[2024-05-09 21:52] VITALS: BP 154/93; PULSE 82; RESP 16; TEMP 36.9; O2SAT 96
[2024-05-10] MEDS: LIDOCAINE 5% PATCH 1 PATCH TRANSDERM (04:25)
[2024-05-10] MEDS: IBUPROFEN 600 MG TABLET PO ×2 (04:25→10:26)
[2024-05-10] MEDS: ACETAMINOPHEN 325 MG TABLET 650 MG PO ×2 (04:25→10:25)
--- NOTE | 2024-05-10 06:36 | PM.OBPNVD ---
OB - PN: Subj Subjective Date/time seen: 05/10/24 06:36 Patient comments: no complaints and pain well controlled baby status: doing well OB - PN: Obj Data Labs 05/07/24 04:58 05/04/24 16:23 OB - PN A/P Plan day: 4 Plan: routine care, discharge home and follow up 6 weeks (4) Time Spent With Patient Time: Total time spent is greater than 50% in coordination of care (as documented) at patient's floor/unit and/or counseling patient: Time with patient: less than 15 minutes Exam Const: General: cooperative, healthy appearing and comfortable Nutritional Appearance: overweight Orientation/consciousness: oriented to person, oriented to place and oriented to time Resp: Effort & Inspection: normal respiratory effort Cardio: Rate: regular rate Rhythm: regular rhythm Heart sounds: S1 normal heart sound present and S2 normal heart sound present GI: Inspection: normal to inspection and incision (cdi)
[2024-05-10 08:00] VITALS: BP 144/84; PULSE 78; RESP 16; TEMP 36.6; O2SAT 99
[2024-05-10] MEDS: MULTIVIT/MIN/PREN/FOL AC/IRON TABLET 1 TAB PO (08:09)
[2024-05-10] MEDS: DOCUSATE SODIUM 100 MG CAPSULE PO (08:10)
[2024-05-10] MEDS: NIFEdipine 30 MG TAB.ER.24 PO (08:10)
[2024-05-10] MEDS: POLYSACCHARIDE IRON COMPLEX 150 MG CAPSULE PO (08:10)
[2024-05-10] MEDS: SIMETHICONE 80 MG TAB.CHEW PO (08:10)
[2024-05-10] MEDS: LABETALOL HCL 100 MG TABLET 200 MG PO (08:10)
[2024-05-10] MEDS: CITALOPRAM HYDROBROMIDE 10 MG TABLET PO (08:10)
[2024-05-10] MEDS: valACYclovir HCL 500 MG TABLET PO (08:10)
[2024-05-12 09:28] VITALS: BP 138/88; PULSE 84; RESP 20; TEMP 36.7; O2SAT 98
== END 2024-05-10 11:43 | disposition home or self-care (01) | DRG 787 ==
LOC: ANHLDR 05-06 22:09 → ANHOB2 05-07 00:51
PROVIDERS: Obstetrics & Gynecology Gynecology; Admitting Provider Obstetrics & Gynecology; PCP Nurse Practitioner Family; Visit Provider Obstetrics & Gynecology
PROC: 10D00Z1 Extraction of Products of Conception, Low, Open Approach (ICD-10-PCS; CPT 59514; principal; 2024-05-06 20:30)
DX: O62.0 Primary inadequate contractions (principal); O10.92 Unspecified pre-existing hypertension complicating childbirth; O98.52 Other viral diseases complicating childbirth; O99.284 Endocrine, nutritional and metabolic diseases complicating childbirth; E28.2 Polycystic ovarian syndrome; O99.344 Other mental disorders complicating childbirth; F41.9 Anxiety disorder, unspecified; O99.214 Obesity complicating childbirth; O69.1XX0 Labor and delivery complicated by cord around neck, with compression, not applicable or unspecified; B00.9 Herpesviral infection, unspecified; Z3A.37 37 weeks gestation of pregnancy; Z37.0 Single live birth; Z87.891 Personal history of nicotine dependence
CPT/HCPCS: 36415; 80053; 80307; 84550; 85025; 86592; 86703; 86850; 86900; 86901; 88307; A9270; G0432; J0290; J0456; J0690; J1885; J2004; J2250; J2274; J2405; J2590; J2795; J7120